=== PATIENT | female | born 1985 | race Caucasian/White ===

== ENCOUNTER 2021-01-11 09:21 | Outpatient (CLI) | payer BC, SELFPAY ==
[2021-01-11 10:35] LABS: SARS-CoV-2 RNA PCR Negative (Negative)
== END 2021-01-11 09:22 | disposition home or self-care (01) ==
LOC: CHSLAB 09:25
PROVIDERS: PCP Internal Medicine; Visit Provider Internal Medicine
DX: J06.9 Acute upper respiratory infection, unspecified (principal); Z20.822 Contact with and (suspected) exposure to COVID-19
CPT/HCPCS: C9803; U0003; U0005

== ENCOUNTER 2022-10-29 15:13 | Outpatient (CLI) | payer BC, SELFPAY ==
--- NOTE | ~2022-10-29 | XR_ITS ---
EXAMINATION: XR finger 4th LT min 2V DATE: 10/29/2022 15:45 INDICATION: Left hand fourth digit injury. TECHNIQUE: 4 views of left hand fourth digit were obtained. COMPARISON: None. FINDINGS: Bone alignment is normal. There is a nondisplaced avulsion fracture of palmar base of fourt h middle phalanx. Joint spaces are normal. IMPRESSION: 1. Nondisplaced avulsion fracture of palmar base of fourth middle phalanx. Reviewed, dictated and finalized at location A.
== END 2022-10-29 15:14 | disposition home or self-care (01) ==
LOC: CHSIMG 15:16
PROVIDERS: PCP Internal Medicine; Visit Provider Internal Medicine
DX: S62.655A Nondisplaced fracture of middle phalanx of left ring finger, initial encounter for closed fracture (principal)
CPT/HCPCS: 73140

== ENCOUNTER 2022-12-17 14:43 | Emergency (ER) | payer BC, SELFPAY ==
[2022-12-17 14:59] VITALS: BP 133/94; PULSE 93; RESP 18; TEMP 37.1; O2SAT 100
--- NOTE | 2022-12-17 15:08 | PC.NURSE ---
Dr. Bowles at bedside.
--- NOTE | 2022-12-17 15:45 | ED.GENADULT ---
HPI - General Adult General Chief complaint: Unspecified Stated complaint: bat exposure Time Seen by Provider: 12/17/22 14:51 History of Present Illness HPI narrative: The patient is a 37-year-old healthy female, who is asymptomatic. On the evening of 12/13/2022, a 15 cm long black flying animal, likely a bat but could be a moth, was noted in the room that she was sleeping in, [place]. The animal was seen by the patient. The window was open in the room. The patient and one of the male children in the room escaped from the room without being bit by the animal, by cloaking themselves with the bedsheets and escaping to the door then closing the door of the room behind them. Animal control was called the next morning (12/14/2022) but no animal was found: the animal likely had escaped through the open window by the next morning. The patient herself was never exposed directly to the flying animal. She noticed a three-bite damion on the right side of her neck on 12/15/2022, two days later, but she was also [place] on the [place] during that time. No initial bites or scratches were noted at the time of seeing the flying object or the next day. She has no symptoms. She comes with her and with her two male children for consideration of rabies vaccination and immunoglobulin. Related Data Allergies Allergy/AdvReac Type Severity Reaction Status Date / Time No Known Allergies Verified 12/17/22 15:05 Review of Systems Review of Systems: All systems reviewed & are unremarkable except as noted in HPI and below Constitutional: Constitutional: Denies chills, Denies excessive sweating, Denies fatigue, Denies fever(s), Denies headache(s) and Denies weakness Eyes: Eyes: Denies change in vision and Denies photophobia ENT: Denies dysphagia, Denies dizziness, Denies headache(s), Denies lip swelling, Denies nasal congestion, Denies sore throat and Denies tongue swelling Cardiovascular: Cardiovascular: Denies chest pain, Denies syncope, Denies rapid heart rate and Denies dyspnea Respiratory: Respiratory: Denies cough, Denies dyspnea and Denies wheezing Gastrointestinal: Gastrointestinal: Denies abdominal pain, Denies constipation, Denies dysphagia, Denies diarrhea, Denies nausea and Denies vomiting Genitourinary: Genitourinary: Denies hematuria, Denies urinary frequency, Denies dysuria and Denies urinary urgency Musculoskeletal: Musculoskeletal: Denies back pain, Denies myalgias, Denies arthralgias, Denies joint swelling and Denies numbness Integumentary/Breasts: Skin/Breast: Denies pruritus, Denies erythema and Reports rash (on the right aspect of the neck.) Neurologic: Denies confusion, Denies dizziness, Denies syncope, Denies headache(s), Denies focal weakness, Denies numbness and Denies weakness Psychiatric: Psychiatric: Denies anxiety and Denies confusion Endocrine: Endocrine: Denies excessive sweating and Denies fatigue Hematologic/Lymphatic: Hematologic/Lymphatic: Denies easy bleeding and Denies easy bruising Allergic/Immunologic: Allergic/Immunologic: Denies lip swelling, Denies tongue swelling and Denies wheezing Exam Const: General: healthy appearing, no acute distress, alert and well nourished Nutritional Appearance: well nourished Orientation/consciousness: patient oriented x3 Limitations: no limitations HENMT: Head: normal to inspection Ears: external ears normal Face/Nose/Sinus: normal facial exam Face and sinus: normal facial exam Mouth: Yes moist mucous membranes Throat: posterior oropharynx normal Eyes: Conjunctivae: conjunctivae normal Pupils: Equal, round and reactive pupils present EOM: EOMs intact bilaterally Neck: Neck: normal visual inspection and no meningeal signs Chest: Chest palpation & inspection: normal inspection of the chest and no tenderness Resp: Effort & Inspection: normal respiratory effort and not labored Auscultation: clear to auscultation bilaterally, no crackle
[2022-12-17] MEDS: RABIES VACCINE (RABAVERT) 2.5 UNITS VIAL IM (16:51)
[2022-12-17] MEDS: RABIES IMMUNE GLOBULIN/PF 1,500 UNITS/5 ML VIAL 1920 UNITS IM (17:20)
== END 2022-12-17 17:35 | disposition home or self-care (01) ==
PROVIDERS: Emergency Provider Emergency Medicine; PCP Internal Medicine
DX: Z29.14 Encounter for prophylactic rabies immune globulin (principal); Z23 Encounter for immunization
CPT/HCPCS: 90471; 90675; 96372; 99283; 90375

== ENCOUNTER 2022-12-20 10:30 | Outpatient (CLI) | payer BC, SELFPAY ==
[2022-12-20] MEDS: RABIES VACCINE (RABAVERT) 2.5 UNITS VIAL IM (11:21)
[2022-12-20 11:26] VITALS: BMI 33.1
[2022-12-20 11:27] VITALS: BP 142/89; PULSE 90; RESP 14
--- NOTE | 2022-12-20 11:28 | PC.NURSE ---
Patient here for Day 3 of rabies vaccine series. No concerns. Tolerated day 0 well. Education given. Injection administered. Tolerated well. Safe exit of hospital. Will return 12/24/22 for day 7.
== END 2022-12-20 10:31 | disposition home or self-care (01) ==
PROVIDERS: PCP Internal Medicine; Visit Provider Emergency Medicine
DX: Z20.3 Contact with and (suspected) exposure to rabies (principal); Z29.14 Encounter for prophylactic rabies immune globulin
CPT/HCPCS: 90471; 90675

== ENCOUNTER 2022-12-24 10:31 | Outpatient (CLI) | payer BC, SELFPAY ==
[2022-12-24 10:37] VITALS: BMI 33.1
[2022-12-24] MEDS: RABIES VACCINE (RABAVERT) 2.5 UNITS VIAL IM (10:54)
[2022-12-24 11:10] VITALS: BP 129/80; PULSE 88; RESP 14; O2SAT 99
== END 2022-12-24 10:32 | disposition home or self-care (01) ==
LOC: CHSTREATRM 10:34
PROVIDERS: PCP Internal Medicine; Visit Provider Emergency Medicine
DX: Z20.3 Contact with and (suspected) exposure to rabies (principal); Z29.14 Encounter for prophylactic rabies immune globulin
CPT/HCPCS: 90471; 90675

== ENCOUNTER 2022-12-31 12:55 | Outpatient (CLI) | payer BC, SELFPAY ==
[2022-12-31 13:01] VITALS: BMI 33.1
[2022-12-31] MEDS: RABIES VACCINE (RABAVERT) 2.5 UNITS VIAL IM (13:26)
[2022-12-31 13:30] VITALS: BP 147/92; PULSE 82; RESP 14; TEMP 36.6; O2SAT 99
--- NOTE | 2022-12-31 13:31 | PC.NURSE ---
Patient herefor day 14 Rabies vaccine. No complaints with other injections last weeks. Rabaies vaccination administered see JUL. Tolerated well. Safe exit of hospital with sons.
== END 2022-12-31 12:56 | disposition home or self-care (01) ==
LOC: CHSTREATRM 12:58
PROVIDERS: PCP Internal Medicine; Visit Provider Emergency Medicine
DX: Z20.3 Contact with and (suspected) exposure to rabies (principal); Z29.14 Encounter for prophylactic rabies immune globulin
CPT/HCPCS: 90471; 90675

== ENCOUNTER 2025-04-20 14:34 | Emergency (ER) | payer BC, SELFPAY ==
--- NOTE | 2025-04-20 14:42 | ED_ITS ---
HPI - Extremity Injury (Lower) General Chief Complaint: Extremity Injury, Lower Stated Complaint: left ankle pain Time Seen by Provider: 04/20/25 14:41 History of Present Illness HPI Narrative: Left without being seen for left ankle pain that has resolved at this time and wants to see her primary doctor and not the emergency room. Related Data Home Medications ?Medication ?Instructions ?Recorded ?Confirmed ?Last Taken ?Type losartan 50 mg-hydrochlorothiazide 1 tablet PO DAILY 0 12/24/22 12/31/22 Unknown History 12.5 mg tablet Allergies Allergy/AdvReac Type Severity Reaction Status Date / Time No Known Allergies Verified 12/17/22 15:05 Discharge Plan Discharge Clinical Impression: Ankle pain Qualifiers: Chronicity: acute Laterality: left Qualified Code(s): M25.572 - Pain in left ankle and joints of left foot Patient Disposition: Left Without Being Seen Patient Language: Slovak Prescriptions: No Action losartan-hydrochlorothiazide 50-12.5 mg Tablet 1 tablet PO DAILY Follow-up/Referrals: Rory Omalley MD [Primary Care Provider, Internal Medicine] Time of Disposition: 14:42
== END 2025-04-20 14:40 | disposition left against medical advice (07) ==
PROVIDERS: Emergency Provider Emergency Medicine; PCP Internal Medicine
DX: M25.572 Pain in left ankle and joints of left foot (principal)
CPT/HCPCS: 99199